=== PATIENT | female | born 1990 | race Caucasian/White ===

== ENCOUNTER 2022-09-18 08:48 | Observation (INO) | payer MEDICAID ==
[~2022-09-18] VITALS: Ht 149.9 cm; Wt 68.0 kg
[2022-09-18] MEDS ORDERED: MAGNESIUM/ALUMINUM HYDROXIDE/SIMETHICONE 30ML UDC PO NR (10:00)
[2022-09-18] MEDS ORDERED: PNV1TABL76 MT (10:10)
[2022-09-18] MEDS ORDERED: FERR-71 MT (10:12)
== END 2022-09-18 11:10 | disposition home or self-care (01) ==
LOC: 8 EST LDRP 08:48
PROVIDERS: ADMIT Obstetrics & Gynecology; ATTEND Obstetrics & Gynecology
DX: O26.893 Other specified pregnancy related conditions, third trimester (principal); R10.13 Epigastric pain; O12.03 Gestational edema, third trimester; Z3A.37 37 weeks gestation of pregnancy
CPT/HCPCS: 59025; G0378; 99281